=== PATIENT | female | born 1950 | race Hispanic/Latino ===

== ENCOUNTER 2016-06-24 15:15 | Emergency (ER) | payer BC, OTHER ==
[2016-06-24 15:20] VITALS: BMI 25.8
[2016-06-24 15:26] VITALS: BP 194/93; PULSE 72; RESP 18; TEMP 97.6; O2SAT 100
[2016-06-24] MEDS ORDERED: DiphenhydrAMINE 50 mg/ml Inj IVP STA (15:41)
[2016-06-24] MEDS ORDERED: Sodium Chloride 0.9% 1,000 ML IV ONE (15:41)
--- NOTE | 2016-06-24 15:49 | ED PDOC ---
Arrival/HPI - General Chief Complaint: Dizziness/Lightheaded Time Seen by Provider: 06/24/16 15:17 Historian: Patient - History of Present Illness Narrative History of Present Illness (Text): 06/24/16 15:43 65yo female with history of left hearing loss BIBA for complaint of positional dizziness. States the room suddenly started spinning, followed by multiple episodes of vomiting. States symptoms started at one and lasted for 2hrs. She notes that she was seen at [facility] [place] [facility] for similar symptoms last weekend and was told she have Vertigo. She also notes that she have seen her PMD in the past for this symptoms and was told she have Vertigo. she sees ENT who cleans her ear every month. States her symptoms are currently resolved. She denies headache, chest pain, SOB, focal weakness, aphasia, abdominal pain, diarrhea, ear pain, fever, chills, any other complaint. Past Medical History - Provider Review Nursing Documentation Reviewed: Yes - Infectious Disease Hx of Infectious Diseases: None - Reproductive Menopause: Yes - HEENT Other/Comment: deaf to L ear - Psychiatric Hx Substance Use: No Family/Social History - Physician Review Nursing Documentation Reviewed: Yes Family/Social History: Unknown Family HX Smoking Status: Former Smoker Hx Alcohol Use: No Hx Substance Use: No Allergies/Home Meds Allergies/Adverse Reactions: Allergies No Known Allergies Allergy (Verified 06/24/16 15:20) Review of Systems - Physician Review All systems were reviewed & negative as marked: Yes - Review of Systems Constitutional: Normal Eyes: Normal ENT: Normal Respiratory: Normal Cardiovascular: Normal Gastrointestinal: Normal Genitourinary Female: Normal Musculoskeletal: Normal Skin: Normal Neurological: Dizziness Endocrine: Normal Hemo/Lymphatic: Normal Psychiatric: Normal Physical Exam Vital Signs Reviewed: Yes Vital Signs Temp Pulse Resp BP Pulse Ox 06/24/16 15:16 97.6 F 72 18 194/93 H 100 Temperature: Afebrile Blood Pressure: Normal Pulse: Regular Respiratory Rate: Normal Appearance: Positive for: Well-Appearing, Non-Toxic, Comfortable Pain Distress: None Mental Status: Positive for: Alert and Oriented X 3 Finger Stick Blood Glucose: 101 - Systems Exam Head: Present: Atraumatic, Normocephalic Pupils: Present: PERRL Extroacular Muscles: Present: EOMI Conjunctiva: Present: Normal Mouth: Present: Moist Mucous Membranes Neck: Present: Normal Range of Motion Respiratory/Chest: Present: Clear to Auscultation, Good Air Exchange. No: Respiratory Distress, Accessory Muscle Use Cardiovascular: Present: Regular Rate and Rhythm, Normal S1, S2. No: Murmurs Abdomen: Present: Normal Bowel Sounds. No: Tenderness, Distention, Peritoneal Signs Back: Present: Normal Inspection Upper Extremity: Present: Normal Inspection. No: Cyanosis, Edema Lower Extremity: Present: Normal Inspection. No: Edema Neurological: Present: GCS=15, CN II-XII Intact, Speech Normal, Motor Func Grossly Intact, Normal Sensory Function, Normal Cerebellar Funct, Norm Deep Tendon Reflexes, Gait Normal, Memory Normal, Normal 2Pt Descrimination, Other ( No focal neurological deficit) Skin: Present: Warm, Dry, Normal Color. No: Rashes Psychiatric: Present: Alert, Oriented x 3, Normal Insight, Normal Concentration Medical Decision Making ED Course and Treatment: 06/24/16 15:55 PT in ED with complaint of positional dizziness. She was comfortable in ED. Her BP was elevated in ED. She states he BP was also elevated while she was at [facility] [place] [facility] last weekend and when she saw her PMD 2days later her BP was normal. She denies headache, chest pain, aphasia, focal weakness. Cardiac lab was ordered. Pt states she have not had any imaging test and Head CT was ordered. NS, Benadryl and Reglan was ordered. Pt took Meclizine when her symptoms started this afternoon. 06/24/16 17:43 Pt declined medications in ED. she was asymptomatic in ED and hemodynamically stable. Lab was unremarkable Head CT - No acute intracranial pathology. Partial opacification/fluid within the right mastoid air celles noted. Clindamycin ordered for mastoiditis. Pt is stable for DC with oral abx. Case was ANNA Gavlan, pt's PMD and he agreed with the plan. States patient can either see him tomorrow or next week. Result and plan was DW the pt. She was advised TRT ED for any new or worsening symptoms. - Lab Interpretations Lab Results: 06/24/16 16:40 06/24/16 15:40 Lab Results 06/24/16 17:00: Urine Color Light yellow, Urine Appearance Sl cloudy, Urine pH 7.5, Ur Specific Groom 1.015, Urine Protein Negative, Urine Glucose (UA) Negative, Urine Ketones Trace H, Urine Blood Negative, Urine Nitrate Negative, Urine Bilirubin Negative, Urine Urobilinogen 0.2, Ur Leukocyte Esterase Small H , Urine RBC Negative, Urine WBC 0 - 2, Ur Epithelial Cells 0 - 2, Amorphous Sediment Many, Urine Bacteria Trace 06/24/16 16:40: WBC 8.2, RBC 4.87, Hgb 14.3, Hct 41.9, MCV 86.0, MCH 29.4, MCHC 34.1, RDW 13.4, Plt Count 310, MPV 10.2, Gran % 75.3 H, Lymph % (Auto) 19.4 L, [place] % (Auto) 2.7, Eos % (Auto) 1.7, Baso % (Auto) 0.9, Gran # 6.18, Lymph # 1.6 , [place] # 0.2, Eos # 0.1, Baso # 0.07, PT 10.7, INR 0.99, APTT 28.7 06/24/16 15:40: Sodium 142, Potassium 4.1, Chloride 103, Carbon Dioxide 32, Anion Gap 11, BUN 14, Creatinine 0.7, Est GFR ( Amer) > 60, Est GFR (Non- Af Amer) > 60, Random Glucose 105, Calcium 9.3, Total Bilirubin 0.6, AST 37, ALT 40, Alkaline Phosphatase 87, Lactate Dehydrogenase 621, Total Creatine Kinase 250 H, CK-MB (CK-2) 4.2 H, CK-MB (CK-2) % Cancelled, Troponin I < 0.01, Total Protein 7.7, Albumin 4.2, Globulin 3.5, Albumin/Globulin Ratio 1.2 06/24/16 15:21: POC Glucose (mg/dL) 101 - RAD Interpretation Radiology Orders: 06/24/16 15:40 HEAD W/O CONTRAST [CT] Stat - EKG Interpretation Interpreted by ED Physician: Yes (NSR @ 72bpm) - Medication Orders Current Medication Orders: Ciprofloxacin (Cipro) 500 mg PO ONCE STA PRN Reason: Protocol Stop: 06/24/16 17:42 Discontinued Medications Diphenhydramine HCl (Benadryl) 25 mg IVP STAT STA Stop: 06/24/16 15:42 Last Admin: 06/24/16 16:08 Dose: Not Given Non-Admin Reason: Patient Refused Sodium Chloride (Sodium Chloride 0.9%) 1,000 mls @ 250 mls/hr IV .Q4H ONE Stop: 06/24/16 19:40 Last Admin: 06/24/16 16:08 Dose: Not Given Non-Admin Reason: Patient Refused Metoclopramide HCl (Reglan) 10 mg IVP STAT STA Stop: 06/24/16 15:42 Last Admin: 06/24/16 16:08 Dose: Not Given Non-Admin Reason: Patient Refused Disposition/Present on Arrival - Present on Arrival Any Indicators Present on Arrival: No History of DVT/PE: No History of Uncontrolled Diabetes: No Urinary Catheter: No History of Decub. Ulcer: No History Surgical Site Infection Following: None - Disposition Have Diagnosis and Disposition been Completed?: Yes Diagnosis: Mastoiditis, Vertigo Disposition: HOME/ ROUTINE Disposition Time: 17:50 Patient Plan: Discharge Patient Problems: Current Active Problems Problem Status Diagnosed Mastoiditis Acute Condition: STABLE Discharge Instructions (ExitCare): Mastoiditis (ED), Vertigo (ED) Additional Instructions: Follow up with your Doctor Return to ED for any new or worsening symptoms Prescriptions: Clindamycin [Cleocin] 300 mg PO TID #30 cap Referrals: Cole HOYOS,Ronald Srivastava MD [Staff Provider] - Follow up with primary
--- NOTE | 2016-06-24 16:38 | CT ---
PROCEDURE: CT HEAD WITHOUT CONTRAST. HISTORY: dizziness COMPARISON: None available. TECHNIQUE: Axial computed tomography images were obtained through the head/brain without intravenous contrast. Radiation dose: Total exam DLP = 774.23 mGy-cm. This CT exam was performed using one or more of the following dose reduction techniques: Automated exposure control, adjustment of the mA and/or kV according to patient size, and/or use of iterative reconstruction technique. FINDINGS: HEMORRHAGE: No intracranial hemorrhage. BRAIN: No mass effect or edema. Intracranial atherosclerotic calcifications. Mild scattered white matter hypodensities, which are nonspecific, but often seen with chronic microvascular ischemic disease. Please note that MRI with diffusion imaging is more sensitive in the detection of acute ischemic event. VENTRICLES: No hydrocephalus. CALVARIUM: Unremarkable. PARANASAL SINUSES: Unremarkable as visualized. No significant inflammatory changes. MASTOID AIR CELLS: Partial opacification/ fluid within the right mastoid air cells. The left mastoid air cells appear clear. OTHER FINDINGS: None. IMPRESSION: No acute intracranial pathology identified. Partial opacification/ fluid within the right mastoid air cells. Correlate clinically for mastoiditis.
[2016-06-24 16:39] LABS: TROPONIN I < 0.01 ng/mL
[2016-06-24 16:48] LABS: ADD MANUAL DIFF? NO
[2016-06-24 16:56] LABS: ALB/GLOB RATIO 1.2 (1.1-1.8); ALKALINE PHOSPHATASE 87 U/L (38-133); ALT/SGPT 40 U/L (7-56); AST/SGOT 37 U/L (15-39); BILIRUBIN,TOTAL 0.6 mg/dL (0.2-1.3); BLOOD UREA NITROGEN 14 mg/dL (7-21); CALCIUM 9.3 mg/dL (8.4-10.5); CARBON DIOXIDE 32 mmol/L (21-33); CHLORIDE 103 mmol/L (98-107); GFR AFRICAN-AMERICAN > 60; GLUCOSE,RANDOM 105 mg/dL (70-110); POTASSIUM 4.1 mmol/L (3.6-5.0); SODIUM 142 mmol/L (132-148); TOTAL PROTEIN 7.7 g/dL (5.8-8.3)
[2016-06-24 17:06] LABS: BASO # 0.07 K/mm3 (0.0-2.0); BASO % 0.9 % (0.0-3.0); EOS # 0.1 (0.0-0.7); EOS % 1.7 % (1.5-5.0); GRAN # 6.18 (1.4-6.5); GRAN % 75.3 % (50.0-68.0); HEMATOCRIT 41.9 % (36.0-48.0); LYMPH # 1.6 (1.2-3.4); LYMPH % 19.4 % (22.0-35.0); MEAN CORPUSCULAR HEMOGLOBIN 29.4 pg (25.0-35.0); MEAN CORPUSCULAR HGB CONC 34.1 g/dl (31.0-37.0); MEAN PLATELET VOLUME 10.2 fl (7.0-11.0); MONO # 0.2 (0.1-0.6); MONO % 2.7 % (1.0-6.0); PLATELET COUNT 310 10^3/uL (120.0-450.0); RED CELL DISTRIBUTION WIDTH 13.4 % (11.5-14.5); WHITE BLOOD COUNT 8.2 10^3/ul (4.5-11.0)
[2016-06-24 17:12] LABS: INR 0.99 (0.93-1.08); PARTIAL THROMBOPLASTIN TIME 28.7 Seconds (23.7-30.8)
[2016-06-24 17:22] LABS: PH,URINE 7.5 (4.7-8.0); URINE BILIRUBIN NEGATIVE (NEGATIVE); URINE BLOOD NEGATIVE (NEGATIVE); URINE GLUCOSE (UA) NEGATIVE (NEGATIVE); URINE KETONE TRACE mg/dL (NEGATIVE); URINE LEUKOCYTE ESTERASE SMALL Leu/uL (NEGATIVE); URINE PROTEIN NEGATIVE mg/dL (<30 mg/dL); URINE UROBILINOGEN 0.2 E.U./dL (<1 E.U./dL)
[2016-06-24 17:30] LABS: URINE APPEARANCE SL CLOUDY (CLEAR); URINE COLOR LIGHT YELLOW (YELLOW)
[2016-06-24 17:37] LABS: URINE AMORPHOUS SEDIMENT MANY; URINE BACTERIA TRACE (NEG); URINE EPITHELIAL CELLS 0 - 2 /hpf (0-5); URINE RBC NEGATIVE /hpf (0-2); URINE WBC 0 - 2 /hpf (0-6)
--- NOTE | 2016-06-25 08:58 | CARD ---
APPROVED REPORT EKG Measurement Heart [id number] <Conclusion> Normal sinus rhythm Normal ECG
== END 2016-06-24 18:05 | disposition home or self-care (01) ==
LOC: ED 15:15
DX: H70.90 Unspecified mastoiditis, unspecified ear (principal); R42 Dizziness and giddiness